=== PATIENT | male | born 1950 | race Caucasian/White ===

== ENCOUNTER 2018-06-19 05:22 | Day surgery (SDC) | payer MEDICARE, OTHER ==
[2018-06-19] MEDS ORDERED: LACTATED RINGERS 1,000 ML ONE (06:37)
[2018-06-19] MEDS ORDERED: fentaNYL CITRATE INJ 50 MCG/ML AMP ONE (06:47)
[2018-06-19] MEDS ORDERED: MIDAZOLAM INJ 2 MG/2 ML VIAL ONE (06:47)
[2018-06-19] MEDS ORDERED: PROPOFOL 200 MG/20 ML VIAL IV ONE (07:00)
[2018-06-19 08:38] VITALS: BP 116/91; TEMP 97.4; O2SAT 98
--- NOTE | 2018-06-19 10:41 | OP ---
DATE OF PROCEDURE: 06/19/18 PREOPERATIVE DIAGNOSIS: 1. Colon cancer screen. POSTOPERATIVE DIAGNOSIS: 1. Diverticulosis of the sigmoid colon. 2. Polyp in the rectum. PROCEDURE: 1. Colonoscopy with polypectomy. SURGEON: Amado Rios MD. ANESTHESIA: MAC. ESTIMATED BLOOD LOSS: Less than 1 mL. COMPLICATIONS: None apparent. TECHNIQUE: After informed consent was obtained from the patient, the patient was taken to the Endoscopy Suite and put in the left lateral decubitus position. After adequate IV sedation was obtained, a digital rectal exam was performed which revealed decreased sphincter tone, no intraluminal masses, and a smooth, 1+, anodular prostate. The colonoscope was then passed with good visualization through the colon. We immediately identified a sessile polyp in the rectum at about 15 cm. The scope was advanced prior to removing this polyp all the way to the cecum. The bowel prep was poor. We had to suction a generous amount of liquid and semi-solid stool from the colon. We were able to remove enough of the fluid to get a good examination done. The cecum was identified by the presence of ileocecal valve and appendiceal orifice. The scope was then withdrawn slowly over an 8 to 10 period and a good look at the entire colonic mucosa was obtained. There were scattered diverticula in the sigmoid region. The patient's polyp was once again identified at 15 cm into the rectum. We were able to remove it with the hot snare and retrieve it without difficulty. There was excellent hemostasis. The scope was removed. The patient tolerated the procedure well. The patient was transported to the outpatient area in good condition. He will followup with me in 2 weeks. He will need a followup colonoscopy in the next 3 to 5 years unless his pathology shows cancer. #[id number] MTDD
== END 2018-06-19 08:30 | disposition home or self-care (01) ==
LOC: AMB 05:22
PROVIDERS: ATTEND Family Medicine
DX: Z12.11 Encounter for screening for malignant neoplasm of colon (principal); D12.8 Benign neoplasm of rectum; K57.30 Diverticulosis of large intestine without perforation or abscess without bleeding; M19.90 Unspecified osteoarthritis, unspecified site; M10.9 Gout, unspecified; N40.0 Benign prostatic hyperplasia without lower urinary tract symptoms; I25.10 Atherosclerotic heart disease of native coronary artery without angina pectoris; Z79.899 Other long term (current) drug therapy
CPT/HCPCS: 00812; 45385; 88305; J2250; J3010; J3490; J7120

== ENCOUNTER → 2019-12-01 | Outpatient (CLI) | payer MEDICARE, OTHER | LOC: GMAJ 12:07 | PROVIDERS: ATTEND Family Medicine | DX: Z12.5 Encounter for screening for malignant neoplasm of prostate (principal) ==

== ENCOUNTER → 2020-06-07 | Outpatient (CLI) | payer MEDICARE, OTHER | LOC: GMAJ 14:42 | PROVIDERS: ATTEND Family Medicine | DX: M10.00 Idiopathic gout, unspecified site (principal); E78.2 Mixed hyperlipidemia; Z79.899 Other long term (current) drug therapy ==